=== PATIENT | female | born 1935 | race Two or more races ===

== ENCOUNTER 2020-02-18 09:55 | Emergency (ER) | payer BC, MEDICARE ==
[~2020-02-18] VITALS: Ht 152.4 cm; Wt 69.8 kg
--- NOTE | 2020-02-18 10:21 | NUR ---
PATIENT WHEELED BACK FROM TRIAGE WITH CHIEF C/O HIGH BP. PER PATIENT SHE WAS SEEN AT [facility] YESTERDAY FOR THE SAME ISSUE, PATIENT REPORTS HER BP YESTERDAY WAS IN THE 200'S SYSTOLIC AND THIS MORNING WAS AGAIN IN THE 200'S SYSTOLIC. PATIENT ACCOMPANIED BY SISTER. BP RIGHT NOW IS 143/69. NADN, CONNECTED TO LEGISLATIVE AIDE, CALL LIGHT WITHIN REACH.
--- NOTE | 2020-02-18 10:29 | NUR ---
ERMD AT BEDSIDE FOR EVALUATION. PATIENT DENIES CHEST PAIN, SOB, DENIES N/V/D, DENIES CROUCH.
--- NOTE | 2020-02-18 10:45 | NUR ---
X-RAY AT BEDSIDE.
--- NOTE | 2020-02-18 10:55 | NUR ---
PATIENT AMBULATED TO BATHROOM WITH ASSISTANCE OF CANE TO LEAVE URINE SAMPLE.
--- NOTE | 2020-02-18 11:03 | NUR ---
PATIENT AMBULATED BACK TO [facility] WITH USE OF CANE, URINE SAMPLE COLLECTED AND WALKED TO LAB. YNES PACK, CALL LIGHT WITHIN REACH, SIDE RAILS UP X2, SISTER AT BEDSIDE.
[2020-02-18 11:16] LABS: MICROSCOPIC AUTO
[2020-02-18 11:19] LABS: BASOPHILS % (AUTO) 0 % (0-1); EOSINOPHILS % (AUTO) 2 % (1-7); LYMPHOCYTES % (AUTO) 36 % (22-44); MEAN CORPUSCULAR HEMOGLOBIN 30.5 pg (27.0-34.8); MEAN CORPUSCULAR HGB CONC 33.1 g/dL (32.4-35.8); MEAN PLATELET VOLUME 8.4 fL (7.4-10.4); MONOCYTES % (AUTO) 10 % (2-9); NEUTROPHILS % (AUTO) 52 % (42-75); PLATELET COUNT 187 x10^3/uL (130-400); RED BLOOD COUNT 5.03 x10^6/uL (3.82-5.3); RED CELL DISTRIBUTION WIDTH 13.9 % (9.6-15.2)
[2020-02-18 11:22] LABS: MD NO
[2020-02-18 11:30] LABS: ALBUMIN 3.5 g/dL (3.4-5.0); ANION GAP 5 mmol/L (5-15); CHLORIDE 109 mmol/L (98-107)
[2020-02-18 11:33] LABS: ALANINE AMINOTRANSFERASE 58 U/L (12-78); ALKALINE PHOSPHATASE 96 U/L (45-117); BILIRUBIN,TOTAL 0.5 mg/dL (0.2-1.0); CREATININE 0.61 mg/dL (0.55-1.02); TOTAL PROTEIN 7.9 g/dL (6.4-8.2); TROPONIN I < 0.015 ng/mL (0.000-0.045)
[2020-02-18 11:44] VITALS: BP 128/91
--- NOTE | 2020-02-18 12:11 | NUR ---
Patient given discharge instructions and prescription and they have confirmed that they understand the instructions. All patient belongings gathered and taken with patient and sister. Patient stable and wheeled out of ED to private vehicle with sister.
== END 2020-02-18 12:12 | disposition home or self-care (01) ==
LOC: ED 11:47
DX: R53.1 Weakness (principal); I10 Essential (primary) hypertension; R07.89 Other chest pain; E03.9 Hypothyroidism, unspecified; R53.83 Other fatigue
CPT/HCPCS: 36415; 71045; 80053; 81001; 83690; 83735; 84443; 84484; 85025; 93005; 99285